=== PATIENT | female | born 1955 | race American Indian/Alaskan Native ===

== ENCOUNTER 2017-12-17 10:46 | Observation (INO) | payer OTHER ==
[2017-12-17 10:57] VITALS: BMI 35.3
[2017-12-17] MEDS ORDERED: Sodium Chloride 0.9% 1,000 ML IV STA (11:14)
[2017-12-17] MEDS ORDERED: Morphine 4 mg/ml ISec IVP STA (11:14)
--- NOTE | 2017-12-17 11:17 | ED PDOC ---
Arrival/HPI - General Chief Complaint: Abdominal Pain Time Seen by Provider: 12/17/17 11:13 Historian: Patient - History of Present Illness Narrative History of Present Illness (Text): 12/17/17 11:15 pt p/w + ~ 2 months onset of left upper/lateral abd tenderness; + waxing and waning pain, at most pain was 10/10 pain; pt states she has no other medical complaints with the abd pain, pt states no fever/chills/sweats, no cp/sob/ palpitations, no pleuritic pain; no n/v, no numbness/tingling, no rashes, no gross bleeding, no urinary/bowel changes, no dysuria, no fall/trauma/sick contact, no travel; pt denied other complaints; pt is here for further eval. pt contacted Dr Stewart's office today and was instructed to come to ED for further eval/exam of her prolonged abd pain PCP: Dr Stewart Time/Duration: > month (2months) Symptom Onset: Gradual Symptom Course: Unchanged Quality: Other (waxing and waning) Severity Level: 10, Severe Activities at Onset: Rest, Other (exertion/movement) Context: Home Past Medical History - Provider Review Nursing Documentation Reviewed: Yes - Travel History Have you recently traveled outside [place] w/in the past 3 mons?: No - Past History Past History: No Previous - Infectious Disease Hx of Infectious Diseases: None - Tetanus Immunization Tetanus Immunization: Unknown - Reproductive Menopause: Yes Currently : No - Past Medical History Past Medical History: No Previous - Psychiatric Hx Substance Use: No - Surgical History Hx Cholecystectomy: Yes Hx Tonsillectomy: Yes Other/Comment: right pelvic tumor - Anesthesia Hx Anesthesia: Yes Hx Anesthesia Reactions: No Hx Malignant Hyperthermia: No - Suicidal Assessment Feels Threatened In Home Enviroment: No Family/Social History - Physician Review Nursing Documentation Reviewed: Yes Family/Social History: No Known Family HX Smoking Status: Never Smoked Hx Alcohol Use: Yes Hx Substance Use: No Hx Substance Use Treatment: No Allergies/Home Meds Allergies/Adverse Reactions: Allergies No Known Allergies Allergy (Verified 03/17/15 11:20) Review of Systems - Review of Systems Constitutional: Normal Eyes: Normal ENT: Normal Respiratory: Normal Cardiovascular: Normal Gastrointestinal: Abdominal Pain Genitourinary Female: Normal Musculoskeletal: Normal Skin: Normal Neurological: Normal Endocrine: Normal Hemo/Lymphatic: Normal Physical Exam Vital Signs Reviewed: Yes Vital Signs Temp Pulse Resp BP Pulse Ox 12/17/17 14:52 64 18 143/86 96 12/17/17 10:56 97.6 F 67 18 138/90 97 Temperature: Afebrile Blood Pressure: Normal Pulse: Regular Respiratory Rate: Normal Appearance: Positive for: Well-Appearing, Non-Toxic, Uncomfortable, Other (alert /awake, GCS = 15, oriented x 3, cooperative, NAD, resting in bed) Pain Distress: None Mental Status: Positive for: Alert and Oriented X 3 - Systems Exam Head: Present: Atraumatic, Normocephalic Pupils: Present: PERRL, Other (no nystagmus, no photophobia, sclera anicteric, visual field intact b/l) Extroacular Muscles: Present: EOMI Conjunctiva: Present: Normal Ears: Present: Normal Mouth: Present: Moist Mucous Membranes, Normal Teeth, Other (uvula/tongue are midline, no exudate/lesions, no drooling/stridor) Pharnyx: Present: Normal Nose (External): Present: Atraumatic Nose (Internal): Present: Normal Inspection Neck: Present: Normal Range of Motion, Trachea Midline. No: Meningeal Signs, MIDLINE TENDERNESS Respiratory/Chest: Present: Clear to Auscultation, Good Air Exchange, Other ( CTA b/l, no w/r/r). No: Respiratory Distress Cardiovascular: Present: Regular Rate and Rhythm, Normal S1, S2. No: Murmurs Abdomen: Present: Normal Bowel Sounds, Other (left upper/lateral region abd tenderness, no rebound/guarding/rigidity, no masses; no townsend's sign, no mcburney's point tenderness, well nourished female) Back: Present: Normal Inspection, Other (intact ROM, no midline tenderness). No : CVA Tenderness, Midline Tenderness Upper Extremity: Present: Normal Inspection, Normal ROM, NORMAL PULSES, Neurovascularly Intact, Capillary Refill < 2s, Other (moving upper ext with ease ) Lower Extremity: Present: Normal Inspection, NORMAL PULSES, Normal ROM, Neurovascularly Intact, Capillary Refill < 2 s, Other (+ ambulatory, neurovasc intact b/l, strength 5/5 grossly intact in all limbs). No: Deformity Neurological: Present: GCS=15, CN II-XII Intact, Speech Normal, Other (CNII-XII WNL, no facial asymmetries, no slurr speech) Skin: Present: Warm, Normal Color, Other (cap refill < 1sec, no ulcerations, no petechiae) Psychiatric: Present: Alert, Oriented x 3 Medical Decision Making ED Course and Treatment: 12/17/17 11:17 Impression: left upper abd pain i have consider all the differential diagnosis regarding pt's chief medical complaints/clinical findings, including but are not limited to: A/P: left abd pain - labs - iv - ct - observe - supportive care - ua Progress Notes: 1330 pt is currently awaiting CT results pt states she still has some discomfort 12/17/17 16:06 pt is now actively vomiting with persistent substernal epigastric pain 12/17/17 16:15 noted basiliar wheezing will start nebs with pt's persistent pain, will recommend admission I spoke with Dr Hope, made aware, agrees with admission/observation and recommend consultation with Dr Giles/Destiny (GI) 12/17/17 16:59 pt felt some improvement but still has some epigastric, left upper abd discomfort pt is made aware of her medical results agrees with admission Re-evaluation Time: 15:30 Reassessment Condition: Improving,but remains with symptoms - Lab Interpretations Lab Results: 12/17/17 11:30 12/17/17 11:30 Lab Results 12/17/17 11:30: Troponin I < 0.01 12/17/17 11:30: pO2 47, VBG pH 7.33, VBG pCO2 62.0 H, VBG HCO3 32.7 H, VBG Total CO2 34.6 H, VBG O2 Sat (Calc) 84.3 H, VBG Base Excess 4.9 H, VBG Potassium 4.2, Sodium 142.0, Chloride 109.0 H, Glucose 94, Lactate 1.2, FiO2 21.0, Venous Blood Potassium 4.2 12/17/17 11:30: Sodium 144, Chloride 106, Potassium 4.4, Carbon Dioxide 30, Anion Gap 13, BUN 11, Creatinine 1.0, Est GFR ( Amer) > 60, Est GFR (Non- Af Amer) 56, Random Glucose 98, Calcium 9.8, Total Bilirubin 0.3, AST 27, ALT 24 , Alkaline Phosphatase 91, Total Protein 7.4, Albumin 4.1, Globulin 3.3, Albumin /Globulin Ratio 1.2, Lipase 104 12/17/17 11:30: Urine Color Light yellow, Urine Appearance Clear, Urine pH 7.0, Ur Specific [place] 1.020, Urine Protein Negative, Urine Glucose (UA) Negative, Urine Ketones Negative, Urine Blood Trace-intact H, Urine Nitrate Negative, Urine Bilirubin Negative, Urine Urobilinogen 0.2, Ur Leukocyte Esterase Negative , Urine RBC 5 - 10, Urine WBC 0 - 2, Ur Epithelial Cells 4 - 5, Amorphous Sediment Few, Urine Bacteria Many, Urine Other Uyeast 12/17/17 11:30: WBC 5.6 D, RBC 4.15, Hgb 12.7, Hct 39.0, MCV 94.0, MCH 30.6, MCHC 32.6, RDW 13.9, Plt Count 215, MPV 9.3, Gran % 37.2 L, Lymph % (Auto) 54.5 H, [place] % (Auto) 6.3 H, Eos % (Auto) 1.6, Baso % (Auto) 0.4, Gran # 2.09, Lymph # (Auto) 3.1, [place] # (Auto) 0.4, Eos # (Auto) 0.1, Baso # (Auto) 0.02 I have reviewed the lab results: Yes Interpretation: All labs normal - RAD Interpretation Narrative RAD Interpretations (Text): 12/17/17 13:45 Abdomen/Pelvis CT: Creator : Tucker Francisco MD FINDINGS: LOWER THORAX:Unremarkable. LIVER:Unremarkable. No gross lesion or ductal dilatation. 9 mm simple cyst right lobe. GALLBLADDER AND BILE DUCTS:Gallbladder removed PANCREAS: Unremarkable. No gross lesion or ductal dilatation. SPLEEN: Unremarkable. ADRENALS: Unremarkable. No mass. KIDNEYS AND URETERS: Unremarkable. No hydronephrosis. No solid mass. VASCULATURE: Unremarkable. No aortic aneurysm. BOWEL: Unremarkable. No obstruction. No gross mural thickening. APPENDIX: Normal appendix. PERITONEUM: Unremarkable. No free fluid. No free air. LYMPH NODES: Unremarkable. No enlarged lymph nodes. BLADDER: Unremarkable. REPRODUCTIVE: Unremarkable. BONES: No acute fracture. OTHER FINDINGS: None. IMPRESSION: No acute findings 12/17/17 16:55 Chest X-ray: Creator : Tucker Francisco MD FINDINGS: LUNGS:No active pulmonary disease. PLEURA:No significant pleural effusion identified. No pneumothorax apparent. CARDIOVASCULAR:Normal. OSSEOUS STRUCTURES:No significant abnormalities. VISUALIZED UPPER ABDOMEN:Normal. OTHER FINDINGS:None. IMPRESSION: No active disease. Radiology Orders: 12/17/17 11:14 ABD PELVIS PO & IV CONTRAST [CT] Stat 12/17/17 16:08 CHEST TWO VIEWS (PA/LAT) [RAD] Stat Photogrammetric Stereo Compiler: Radiologist - EKG Interpretation EKG Interpretation (Text): 12/17/17 12:05 NSR at 70 bpm, normal axis, no ectopy, inverted T in leads III, no st changes, BORDERLINE EKG; no old ekg to compare with 12/17/17 14:00 EKG#2: Sinus rhythm at 80 bpm, borderline 1st degree av block, normal axis, no ectopy, inverted t in leads III, non-specific st-t changes, ABNL EKG; no gross changes compare with initial EKG Interpreted by ED Physician: Yes Type: 12 lead EKG Comparison: No previous EKG avail. - Medication Orders Current Medication Orders: Sodium Chloride (Sodium Chloride 0.9%) 1,000 mls @ 100 mls/hr IV .Q10H STA Stop: 12/17/17 21:13 Last Admin: 12/17/17 11:36 Dose: 100 mls/hr eMAR Start Stop Document 12/17/17 11:36 SRE (Rec: 12/17/17 11:37 SRE [id number]) Intravenous Solution Start Date 12/17/17 Start Time 11:37 End Date 12/17/17 End time 21:00 Total Infusion Time 563 Sodium Chloride (Sodium Chloride 0.9%) 1,000 mls @ 100 mls/hr IV .Q10H JOSE DAVID Discontinued Medications Albuterol/Ipratropium (Duoneb 3 Mg/0.5 Mg (3 Ml) Ud) 3 ml IH Q15M JOSE DAVID Stop: 12/17/17 16:46 Aspirin (Aspirin Chewable) 81 mg PO STAT STA Stop: 12/17/17 16:06 Ketorolac Tromethamine (Toradol) 30 mg IVP STAT STA Stop: 12/17/17 11:15 Last Admin: 12/17/17 11:36 Dose: 30 mg MAR Pain Assessment Document 12/17/17 11:36 SRE (Rec: 12/17/17 11:36 SRE [id number]) Pain Reassessment Is this a pain reassessment? Yes Sleep Is patient sleeping during reassessment? No Presence of Pain Presence of Pain Yes Pain Scale Used Pain Scale Used Numeric Location Left, Right or Bilateral Left Pain Location Body Site Abdomen Description Description Intermittent IVP Administration Document 12/17/17 11:36 SRE (Rec: 12/17/17 11:36 SRE [id number]) Charges for Administration # of IVP Administrations 1 Metoclopramide HCl (Reglan) 10 mg IVP STAT STA Stop: 12/17/17 16:06 Last Admin: 12/17/17 16:53 Dose: 10 mg IVP Administration Document 12/17/17 16:53 SRE (Rec: 12/17/17 16:53 SRE [id number]) Charges for Administration # of IVP Administrations 1 Morphine Sulfate (Morphine) 4 mg IVP STAT STA Stop: 12/17/17 11:15 Last Admin: 12/17/17 11:35 Dose: 4 mg MAR Pain Assessment Document 12/17/17 11:35 SRE (Rec: 12/17/17 11:36 SRE [id number]) Pain Reassessment Is this a pain reassessment? Yes Sleep Is patient sleeping during reassessment? No Presence of Pain Presence of Pain Yes Pain Scale Used Pain Scale Used Numeric Location Pain Location Body Site Abdomen Description Description Intermittent IVP Administration Document 12/17/17 11:35 SRE (Rec: 12/17/17 11:36 SRE [id number]) Charges for Administration # of IVP Administrations 1 - Scribe Statement The provider has reviewed the documentation as recorded by the Ludwin Junior Provider Scribe Attestation: All medical record entries made by the Scribe were at my direction and personally dictated by me. I have reviewed the chart and agree that the record accurately reflects my personal performance of the history, physical exam, medical decision making, and the department course for this patient. I have also personally directed, reviewed, and agree with the discharge instructions and disposition. Disposition/Present on Arrival - Present on Arrival Any Indicators Present on Arrival: No History of DVT/PE: No History of Uncontrolled Diabetes: No Urinary Catheter: No History of Decub. Ulcer: No History Surgical Site Infection Following: None - Disposition Have Diagnosis and Disposition been Completed?: Yes Diagnosis: Dehydration, Abdominal pain, Chest pain with low risk for cardiac etiology Disposition: HOSPITALIZED Disposition Time: 16:17 Patient Plan: Admission, Observation Patient Problems: Current Active Problems Problem Status Onset Chest pain Acute Dehydration Acute Abdominal pain Acute Condition: STABLE Discharge Instructions (ExitCare): Chest Pain (ED) Referrals: [facility] Nicole Gill, [Non-Staff] - Follow up with primary Forms: Fleck (Ivorian)
[2017-12-17] MEDS ORDERED: Iohexol 240 (50 ml) ONE (11:19)
[2017-12-17 11:40] LABS: VENOUS BLOOD GAS BASE EXCESS 4.9 mmol/L (0.0-2.0); VENOUS BLOOD GAS PO2 47 mm/Hg (30-55); VENOUS BLOOD PH 7.33 (7.32-7.43)
[2017-12-17 11:53] LABS: ALB/GLOB RATIO 1.2 (1.1-1.8); ALBUMIN 4.1 g/dL (3.0-4.8); ALT/SGPT 24 U/L (7-56); AST/SGOT 27 U/L (14-36); BLOOD UREA NITROGEN 11 mg/dL (7-21); CALCIUM 9.8 mg/dL (8.4-10.5); GFR AFRICAN-AMERICAN > 60; GFR NON-AFRICAN AMERICAN 56; LIPASE 104 U/L (23-300)
[2017-12-17 11:54] LABS: BASO # 0.02 K/mm3 (0.0-2.0); BASO % 0.4 % (0.0-3.0); EOS # 0.1 (0.0-0.7); EOS % 1.6 % (1.5-5.0); GRAN # 2.09 (1.4-6.5); GRAN % 37.2 % (50.0-68.0); HEMOGLOBIN 12.7 g/dL (12.0-16.0); LYMPH # 3.1 (1.2-3.4); LYMPH % 54.5 % (22.0-35.0); MEAN CORPUSCULAR HEMOGLOBIN 30.6 pg (25.0-35.0); MEAN CORPUSCULAR HGB CONC 32.6 g/dl (31.0-37.0); MEAN PLATELET VOLUME 9.3 fl (7.0-11.0); MONO # 0.4 (0.1-0.6); MONO % 6.3 % (1.0-6.0); RBC 4.15 10^6/uL (3.5-6.1); RED CELL DISTRIBUTION WIDTH 13.9 % (11.5-14.5); WHITE BLOOD COUNT 5.6 10^3/ul (4.5-11.0)
[2017-12-17 12:13] LABS: URINE BILIRUBIN NEGATIVE (NEGATIVE); URINE BLOOD TRACE-INTACT (NEGATIVE); URINE GLUCOSE (UA) NEGATIVE (NEGATIVE); URINE LEUKOCYTE ESTERASE NEGATIVE Leu/uL (NEGATIVE); URINE PROTEIN NEGATIVE mg/dL (<30 mg/dL); URINE UROBILINOGEN 0.2 E.U./dL (<1 E.U./dL)
[2017-12-17 12:14] LABS: URINE APPEARANCE CLEAR (CLEAR); URINE COLOR LIGHT YELLOW (YELLOW)
[2017-12-17 12:18] LABS: URINE WBC 0 - 2 /hpf (0-6)
[2017-12-17 12:19] LABS: URINE AMORPHOUS SEDIMENT FEW; URINE BACTERIA MANY (NEG)
[2017-12-17] MEDS ORDERED: Iohexol 350 MG/100 ML VIAL ONE (12:54)
--- NOTE | 2017-12-17 13:47 | CT ---
PROCEDURE: CT Abdomen and Pelvis with contrast HISTORY: left upper/mid abd tenderness x 2 months COMPARISON: None. TECHNIQUE: Contrast dose: 100 cc of Omni 350 Radiation dose: Total exam DLP = 804 mGy-cm. This CT exam was performed using one or more of the following dose reduction techniques: Automated exposure control, adjustment of the mA and/or kV according to patient size, and/or use of iterative reconstruction technique. FINDINGS: LOWER THORAX: Unremarkable. LIVER: Unremarkable. No gross lesion or ductal dilatation. 9 mm simple cyst right lobe. GALLBLADDER AND BILE DUCTS: Gallbladder removed PANCREAS: Unremarkable. No gross lesion or ductal dilatation. SPLEEN: Unremarkable. ADRENALS: Unremarkable. No mass. KIDNEYS AND URETERS: Unremarkable. No hydronephrosis. No solid mass. VASCULATURE: Unremarkable. No aortic aneurysm. BOWEL: Unremarkable. No obstruction. No gross mural thickening. APPENDIX: Normal appendix. PERITONEUM: Unremarkable. No free fluid. No free air. LYMPH NODES: Unremarkable. No enlarged lymph nodes. BLADDER: Unremarkable. REPRODUCTIVE: Unremarkable. BONES: No acute fracture. OTHER FINDINGS: None. IMPRESSION: No acute findings
[2017-12-17] MEDS ORDERED: Sodium Chloride 0.9% 1,000 ML IV SCH (16:15)
[2017-12-17] MEDS: Albuterol-Ipratrop 3 mg / 0.5 (3 ml) UD IH SCH ×3 (16:30→17:05)
--- NOTE | 2017-12-17 16:56 | RAD ---
HISTORY: chest pain, sob COMPARISON: No prior. TECHNIQUE: Chest PA and lateral FINDINGS: LUNGS: No active pulmonary disease. PLEURA: No significant pleural effusion identified. No pneumothorax apparent. CARDIOVASCULAR: Normal. OSSEOUS STRUCTURES: No significant abnormalities. VISUALIZED UPPER ABDOMEN: Normal. OTHER FINDINGS: None. IMPRESSION: No active disease.
[2017-12-17 20:41] LABS: HDL CHOLESTEROL 51 mg/dL (29-60)
--- NOTE | 2017-12-17 20:44 | CARD ---
APPROVED REPORT EKG Measurement Heart [id number] <Conclusion> Sinus rhythm with marked sinus arrhythmia Otherwise normal ECG
--- NOTE | 2017-12-17 20:50 | CARD ---
APPROVED REPORT EKG Measurement Heart [id number] [place] 154P70 [id number] <Conclusion> Normal sinus rhythm Normal ECG
[2017-12-17 20:52] LABS: LDL CHOLESTEROL 86 mg/dL (0-129); TROPONIN I < 0.01 ng/mL
[2017-12-17] MEDS: Dextrose 5%/0.45% NS 1,000 ML IV SCH (20:56)
[2017-12-18] MEDS ORDERED: Pneumococcal 23-Valent Vaccine IM ONE (00:04)
[2017-12-18] MEDS ORDERED: Influenza Vaccine 60 mcg/0.5 mL SYR (4YR UP) IM ONE (00:04)
[2017-12-18] MEDS: Dextrose 5%/0.45% NS 1,000 ML IV SCH ×2 (05:36→09:44)
--- NOTE | 2017-12-18 06:51 | HP ---
HISTORY OF PRESENT ILLNESS: Patient is a 62-year-old who came to emergency room because of abdominal discomfort, chest discomfort, going on for almost 2 months, but lately has not been feeling well. She feels nauseous. She also complained of retrosternal discomfort. history of left lower chest pain no vomiting. No history of fever or chills. No palpitation. No diaphoresis. No weakness, no numbness, no tingling. PAST MEDICAL HISTORY: Significant only for occasional heartburn. For that, she takes Pepcid and Motrin once in a while. ALLERGIES: SHE IS NOT ALLERGIC TO ANY MEDICATION. MEDICATIONS AT HOME: She takes ibuprofen as needed, Zofran ODT and Pepcid 40 mg twice a day. SOCIAL HISTORY: Denies smoking. Drinking alcohol only socially. REVIEW OF SYSTEMS: Significant for upper abdominal discomfort. No complaint of constipation. No hemoptysis. No hematemesis. PHYSICAL EXAMINATION: GENERAL: She is awake, alert, oriented, communicative. VITAL SIGNS: She is afebrile, pulse 67, respiration 18, blood pressure 136/74. LUNGS: Bilateral good airflow. No rhonchi or crackles. HEART: S1 and S2 audible. ABDOMEN: Soft. Slight epigastric discomfort. NEUROLOGIC: She is awake, alert, oriented, communicative. LABORATORY DATA: WBC is 5.6, hemoglobin 12.7, hematocrit 39.0, platelet . Chemistry: Sodium 144, potassium 4.4, chloride 106, CO2 30, BUN 11, creatinine 1.0. Blood sugar of 98. LFTs are within normal limits. Urinalysis is unremarkable. CT scan of the abdomen and pelvis was done that is also unremarkable. X-ray of chest shows no active disease. ASSESSMENT: 1. Chest pain, rule out coronary ischemia. 2. Rule out gastritis. 3. Rule out peptic ulcer disease. PLAN: We will start patient on IV fluid. Start her on Zofran. Follow up cardiac enzymes. Antiemetic as needed. Start her on PPI. We will reevaluate patient in the a.m. Charles Hope MD [facility] # [id number]
[2017-12-18 07:11] LABS: ALB/GLOB RATIO 1.1 (1.1-1.8); ALBUMIN 3.3 g/dL (3.0-4.8); ALT/SGPT 47 U/L (7-56); AST/SGOT 47 U/L (14-36); BLOOD UREA NITROGEN 7 mg/dL (7-21); CALCIUM 8.7 mg/dL (8.4-10.5); GFR AFRICAN-AMERICAN > 60; GFR NON-AFRICAN AMERICAN > 60
[2017-12-18 07:13] LABS: FREE T4 0.63 ng/dL (0.78-2.19)
--- NOTE | 2017-12-18 08:35 | CON ---
DATE: 12/17/2017 REASON FOR CONSULTATION: Abdominal pain. HISTORY OF PRESENT ILLNESS: This 62-year-old patient is complaining of intermittent episodes of abdominal pain, mainly in the left side of the abdomen, left upper quadrant, intermittently for more than 2-3 months. Progressively getting worse. She has a history of chronic cough for a long time. The pain was constant for nearly one full day, which was severe in intensity, came to the emergency room. No change of bowel habits. No bleeding per rectum. No fever. No chest pain. PAST MEDICAL HISTORY: Other past medical history is significant as above, status post cholecystectomy many years ago, had an endoscopy and colonoscopy long time back. FAMILY HISTORY: Noncontributory. SOCIAL HISTORY: Denies smoking. Alcohol socially. REVIEW OF SYSTEMS: Positive as above. ALLERGIES: NO KNOWN DRUG ALLERGY. PHYSICAL EXAMINATION: GENERAL: The patient is lying on the bed, not in any acute distress. VITAL SIGNS: Pulse 67, temperature is 98.1, blood pressure 136/74. HEENT: Atraumatic, anicteric. NECK: Supple. HEART: S1, S2 heard. LUNGS: Bilateral air entry present. ABDOMEN: Soft. There is tenderness present in the left upper quadrant area. No rebound or guarding. EXTREMITIES: No edema, no cyanosis. NEUROLOGIC: Alert and oriented. Moves all the extremities. LABORATORY DATA: Hemoglobin 12.7, hematocrit 39, WBC 5.6, platelets 215. BUN 11, creatinine 1. LFTs essentially unremarkable. CT scan of the abdomen and pelvis is essentially unremarkable, status post cholecystectomy, CBD [address] scan of the abdomen and pelvis was reviewed, was otherwise unremarkable. IMPRESSION: This 62-year-old patient was admitted to the hospital with complaints of worsening of left-sided abdominal pain, mainly in the left upper quadrant area. The patient has a history of chronic cough. The differential diagnoses include peptic ulcer disease, erosive esophagitis, musculoskeletal etiology also to be considered. RECOMMENDATION: Would recommend; 1. Pepcid with IV Protonix. 2. Clear liquid diet. 3. Upper GI endoscopy in a.m. Thank you very much for allowing me to participate in the care of the patient. Alis Hopson MD
[2017-12-18] MEDS ORDERED: Naproxen 550 mg Tab PO STA (14:55)
[2017-12-18] MEDS ORDERED: Propofol 10 mg/ml Inj (20 ML) ONE ×2 (15:29→15:31)
[2017-12-18] MEDS ORDERED: Sodium Chloride 0.9% 1,000 ML IV SCH (15:30)
--- NOTE | 2017-12-18 17:13 | CT ---
PROCEDURE: CT Chest without contrast HISTORY: left sided chest pain COMPARISON: None. TECHNIQUE: Contiguous axial images were obtained through the chest without intravenous contrast enhancement. Sagittal and coronal reconstructions were performed. Radiation dose (DLP): 391 mGy-cm. This CT exam was performed using one or more of the following dose reduction techniques: Automated exposure control, adjustment of the mA and/or kV according to patient size, and/or use of iterative reconstruction technique. FINDINGS: LUNGS: There is some linear scarring at the left lung base. The lungs are otherwise clear MEDIASTINUM: Unremarkable thoracic aorta. No aneurysm. Normal sized heart. Main pulmonary artery unremarkable. No vascular congestion. No lymphadenopathy. PLEURA: No pleural fluid. No pneumothorax. BONES: No fracture. No destructive lesion. UPPER ABDOMEN: There is an 8 mm simple cyst in the right lobe of the liver. The gallbladder has been removed OTHER FINDINGS: None. IMPRESSION: Unremarkable non-contrast enhanced CT of the chest.
--- NOTE | 2017-12-18 21:28 | CON ---
DATE: 12/18/2017 REASON FOR CONSULTATION: Cardiac evaluation, admitted with left upper quadrant abdominal pain, epigastric pain, cardiac evaluation, rule out CAD. BRIEF CLINICAL HISTORY: This is a 62-year-old female with past medical history, complaint of abdominal discomfort 2 to 3 months in the left lower quadrant and the back and sometimes, which is radiated to the epigastric area. Denies any chest pain. Denies shortness of breath. Denies any palpitations. Though, sometimes she get short of breath. PAST MEDICAL HISTORY: Significant for heart burn and history of left upper quadrant pain for 2 months. ALLERGIES: NO KNOWN DRUG ALLERGIES. CURRENT MEDICATIONS: The patient is taking Zofran and Pepcid. SOCIAL HISTORY: Denies any history of alcohol abuse. FAMILY HISTORY: Significant for diabetes, no history of coronary artery disease. REVIEW OF SYSTEMS: As per HPI. PHYSICAL EXAMINATION: VITAL SIGNS: Temperature afebrile, heart rate 62, blood pressure 124/74. HEENT: PERRLA. Extraocular muscles intact. NECK: Supple. No carotid bruits or thyromegaly. CHEST: Clear to auscultation. HEART: S1 and S2 regular. ABDOMEN: Soft. EXTREMITIES: Clubbing and cyanosis negative. Mild tenderness in epigastric area region noted. LABORATORY DATA: EKG showed normal sinus, no acute ST-T changes noted. Blood workup as follows: WBC 5.6, hemoglobin 12, hematocrit 39, platelet count 215. Chemistry shows sodium 141, potassium 4, chloride 107, carbon dioxide 26, anion gap of 11, BUN , creatinine 0.7. Troponin is 0.01 x2 negative. IMPRESSION AND PLAN: Atypical chest pain, most likely gastrointestinal in origin. No evidence of acute myocardial infarction. No evidence of ischemia or congestive heart failure or arrhythmia. The patient is cleared from a cardiac point of view for endoscopy. We will suggest echo to assess LV function. We will follow with you. We will get lipid profile, TSH. Thank you, Dr. Hope, for providing us the opportunity in taking care of Mily Carvajal. Consider GI workup and consider stress test as an outpatient for risk stratification. After the endoscopy, we will consider echo to assess LV function. Tim Giles MD
--- NOTE | 2017-12-18 23:27 | PN ---
DATE: SUBJECTIVE: The patient is 62 years old, seen and examined, complaining of left lower chest pain, left upper quadrant discomfort. Denies any shortness of breath, does complain of epigastric discomfort and did vomit yesterday in the emergency room. No history of hemoptysis or hematemesis. No blood in stool. PHYSICAL EXAMINATION: VITAL SIGNS: She is afebrile, pulse 63, respirations 16, blood pressure 143/78. LUNGS: Bilateral good airflow. No rhonchi or crackle. HEART: S1, S2 audible. ABDOMEN: Soft, nontender. No rebound. No guarding. NEUROLOGICAL: Patient is awake, alert, oriented, able to communicate. LABORATORY EXAM: Sodium 141, potassium 4.0, chloride 107, CO2 of 26, BUN 7, creatinine 0.8, blood sugar of 110. LFTs are within normal limits. Two sets of her troponin is negative. Urinalysis is unremarkable. CT scan of the chest was ordered that has no significant findings. Patient went for endoscopy today. I just got a call from Dr. Hopson that patient has duodenitis and also ulcer on fundus and antrum. ASSESSMENT: Noncardiac chest pain, borderline hypertension. PLAN: We will discontinue her aspirin, continue her on Protonix, advance the diet, and we will watch her for next 24 hours and possible discharge in a.m. on PPI. Charles Hope MD
--- NOTE | 2017-12-19 09:57 | CP.PCM.PN ---
Subjective - Date & Time of Evaluation Date of Evaluation: 12/19/17 Time of Evaluation: 09:47 - Subjective Subjective: S&E at bedside , chart reviewed, no acute overnight events, tolerating oral intake but did report urgency for BM, had loose BM, no bleeding. S/P EGD yesterday found esophagitis/duodenitis/gastric ulcer, w/ BX. HAd ct scan chest found linear scar left chest otherwise clear, no lymph nodes, found 8 mm simple liver cyst in right lobe. Patient still has epigastric discomfort and today had some radiation to back. Objective - Vital Signs/Intake and Output Vital Signs (last 24 hours): Temp Pulse Resp BP Pulse Ox 97.7 F 59 L 20 158/91 H 100 12/19/17 08:03 12/19/17 08:03 12/19/17 08:03 12/19/17 08:03 12/19/17 08:03 Intake and Output: 12/19/17 12/19/17 06:59 18:59 Intake Total 560 Output Total 0 Balance 560 - Medications Medications: Current Medications Acetaminophen (Tylenol 325mg Tab) 650 mg PO Q6H PRN PRN Reason: Fever >100.4 F Sodium Chloride (Sodium Chloride 0.9%) 1,000 mls @ 100 mls/hr IV .Q10H JOSE DAVID Ondansetron HCl (Zofran Inj) 4 mg IVP Q6H PRN PRN Reason: Nausea/Vomiting Last Admin: 12/18/17 19:28 Dose: 4 mg Pantoprazole Sodium (Protonix Inj) 40 mg IVP DAILY JOSE DAVID Last Admin: 12/19/17 09:14 Dose: 40 mg - Labs Labs: 12/18/17 06:30 - Head Exam Head Exam: NORMOCEPHALIC - Eye Exam Eye Exam: Normal appearance. absent: Scleral icterus - ENT Exam ENT Exam: Mucous Membranes Moist - Neck Exam Neck Exam: Normal Inspection - Respiratory Exam Respiratory Exam: NORMAL BREATHING PATTERN. absent: Respiratory Distress - Cardiovascular Exam Cardiovascular Exam: +S1, +S2 - GI/Abdominal Exam GI & Abdominal Exam: Soft, Tenderness (epigastric), Normal Bowel Sounds. absent : Guarding, Organomegaly, Rebound - Extremities Exam Extremities Exam: absent: Calf Tenderness, Pedal Edema - Neurological Exam Neurological Exam: Alert, Awake, Oriented x3 - Skin Skin Exam: Dry, Warm Assessment and Plan - Assessment and Plan (Free Text) Assessment: ASSESSMENT: Atypical chest pain s/p EGD gastric ulcer/esophagitis/duodenitis s/ p BX HTN 8mm simple cyst right hepatic lobe seen on chest ct scan\ PLAN: continue Protinix 40 mg daily, discuss to continue till have repeat EGD FU BX of EGD avoid NSAIDs repeat EGD 2 months to FU healing of ulcer discuss w/ patient repeat egd and last colon was >5 years ago, c/o urgency to have BM after eating. Consider elective outpatient colon, Patient to FU w/ Dr. Burnett on discharge. Seen and discussed w/ Dr. Hopson.
[2017-12-19 11:12] VITALS: BP 158/91; PULSE 59; RESP 20; TEMP 97.7
[2017-12-19 11:15] VITALS: O2SAT 100
--- NOTE | 2017-12-19 17:27 | PN ---
DATE: 12/19/2017 LOCATION: The patient in room 368, bed 2. REASON FOR CONSULTATION: Cardiac evaluation, rule out coronary artery disease, left upper quadrant abdominal pain, epigastric pain. SUBJECTIVE: The patient is lying flat in bed without any chest pain, shortness of breath, or palpitation. The patient is scheduled for gastro-endoscopy today. PHYSICAL EXAMINATION: VITAL SIGNS: Blood pressure 158/91, respirations 20, pulse 59, and temperature 97.7. HEENT: Head is normocephalic. Eyes: Pupils normal. Conjunctivae normal. Nose and throat normal. NECK: JVP low. Carotid equal. THORAX: AP diameter normal. LUNGS: Clear. CARDIOVASCULAR: S1 and S2. ABDOMEN: Soft. Bowel sounds normal. EXTREMITIES: No clubbing. No cyanosis. LABORATORY DATA: WBC 5.6, hemoglobin 12.7, hematocrit 39, platelets 215. Sodium 141, potassium 4. BUN 7, creatinine 0.8. Troponin x2 negative. TSH 1.73. Triglycerides 54, cholesterol 157, HDL 51, LDL 86. CT chest unremarkable. DIAGNOSES: Chest pain and abdominal pain. These are all related to gastrointestinal origin. No evidence of acute coronary syndrome. The patient is clinically stable from cardiac point of view to go for gastro-endoscopy as moderate risk. We will continue to follow closely with you. The patient is getting Protonix 40 IV daily. She also getting IV therapy. We will follow. Tim Dash MD
--- NOTE | 2017-12-20 08:10 | DS ---
HISTORY OF PRESENT ILLNESS: The patient is 62-year-old, seen and examined, was admitted because of left-sided chest pain, upper abdominal pain. No cough. No congestion. Had endoscopy done yesterday shows ulcer in the gastric fundus and inflammation of the duodenum. PHYSICAL EXAMINATION: GENERAL: On examination today, she is awake, alert, oriented, communicative. VITAL SIGNS: She is afebrile, pulse 59, respirations 20, blood pressure 158/91. LUNGS: Bilateral good airflow. No rhonchi or crackle. HEART: S1 and S2 audible. No murmur. ABDOMEN: Soft, nontender. No rebound. No guarding. NEUROLOGIC: She is awake, alert, oriented, communicative, ambulatory. ASSESSMENT: 1. Peptic ulcer disease. 2. Gastric fundus ulcer. 3. Duodenitis. PLAN: The patient is being discharged home on Protonix 40 mg daily. She will follow up with Dr. Hopson in 3 to 4 months to have repeat endoscopy done and she will have colonoscopy done as outpatient. Charles Hope MD
== END 2017-12-19 15:37 | disposition home or self-care (01) ==
LOC: ED 10:46 → ERH 16:11 → 3RNO 18:06
PROVIDERS: ADMIT Internal Medicine; ATTEND Internal Medicine
DX: R07.89 Other chest pain (principal); K20.9 Esophagitis, unspecified; K25.9 Gastric ulcer, unspecified as acute or chronic, without hemorrhage or perforation; K29.80 Duodenitis without bleeding; K29.50 Unspecified chronic gastritis without bleeding; E86.0 Dehydration; I10 Essential (primary) hypertension; Z90.49 Acquired absence of other specified parts of digestive tract
CPT/HCPCS: 36415; 43239; 71046; 71250; 74177; 80053; 80061; 81001; 82803; 83036; 83690; 84439; 84443; 84484; 85025; 88305; 88342; 93005; 94640; 96361; 96374; 96375; 99284; C9113; G0378; J1885; J2001; J2270; J2405; J2704; J2765; J7040; J7042; Q9966; Q9967

== ENCOUNTER 2018-03-28 11:56 | Day surgery (SDC) | payer OTHER ==
[2018-03-20 12:12] VITALS: BMI 34.0
[2018-03-28] MEDS ORDERED: Propofol 10 mg/ml Inj (20 ML) ONE (12:38)
[2018-03-28] MEDS ORDERED: Sodium Chloride 0.9% 1,000 ML IV SCH (13:15)
[2018-03-28 16:11] VITALS: BP 153/88; RESP 16; TEMP 97.7
[2018-03-28 16:12] VITALS: PULSE 62; O2SAT 99
== END 2018-03-28 15:50 | disposition home or self-care (01) ==
LOC: ENDO 11:56
PROVIDERS: ATTEND Internal Medicine Gastroenterology
DX: K63.5 Polyp of colon (principal); K29.30 Chronic superficial gastritis without bleeding; K44.9 Diaphragmatic hernia without obstruction or gangrene; K64.0 First degree hemorrhoids; R10.12 Left upper quadrant pain
CPT/HCPCS: 43239; 45380; 88305; 88342; J2001; J2175; J2704; J7030; J7040